=== PATIENT | male | born 1960 | race Two or more races ===

== ENCOUNTER 2024-07-18 15:13 | Inpatient (IN) | payer OTHER ==
[~2024-07-18] VITALS: Ht 182.9 cm; Wt 77.1 kg
[2024-07-18] MEDS ORDERED: TAMS0.4C PO (15:25)
[2024-07-18] MEDS ORDERED: LOSARTAN POTASS25 MG PO (15:25)
[2024-07-18] MEDS ORDERED: CEFTRIAXONE SODIUM 1,000 MG VIAL IV ONE (17:30)
[2024-07-18] MEDS ORDERED: 0.9 % SODIUM CHLORIDE 1,000 ML IV SCH ×2 (17:30→20:00)
[2024-07-18] MEDS ORDERED: CEFTRIAXONE SODIUM 1,000 MG VIAL ONE (18:27)
[2024-07-18 18:46] LABS: HEMATOCRIT 36.2 % (39.0-48.0); HEMOGLOBIN 11.9 g/dL (13-16.00); MEAN CELL VOLUME 88.3 fL (80.0-100.00); MEAN CORPUSCULAR HEMOGLOBIN 29.1 pg (27.00-32.0); MEAN CORPUSCULAR HGB CONC 32.9 g/dl (32.0-36.0); PLATELET COUNT 450 K/uL (150-450); RED CELL DISTRIBUTION WIDTH 15.2 % (11.5-14.5)
[2024-07-18 18:51] LABS: PH,URINE 7.5 (5.0-8.0); URINE APPEARANCE Cloudy; URINE BILIRRUBIN Negative (NEGATIVE); URINE BLOOD NHT; URINE COLOR Yellow; URINE GLUCOSE Negative (NEGATIVE); URINE KETONE Negative (NEGATIVE); URINE LEUKOCYTE Large; URINE NITRATE Positive; URINE PROTEIN Negative (NEGATIVE)
[2024-07-18 18:55] LABS: URINE CAST 2.35 uL (0.0-1.40); URINE EPITHELIAL CELLS 5.2 uL (0.0-38.8); URINE RBC 10.4 uL (0.0-20.8); URINE WBC 482.2 uL (0.0-23.2)
[2024-07-18 19:12] LABS: ALBUMIN 2.5 gm/dL (3.4-5.0); BILIRUBIN TOTAL 0.4 mg/dL (0.3-1.2); CALCIUM 8.2 mg/dL (8.5-10.1); CREATININE SERUM 0.35 mg/dL (0.70-1.30); GFR 251.08; GLOBULINA 3.3 G/DL (2.4-3.5); POTASSIUM 4.5 mEq/L (3.5-5.1); TOTAL PROTEIN 5.8 gm/dL (6.4-8.2)
[2024-07-18 19:14] LABS: URINE BACTERIA > 9821.5 uL (0.0-1933)
[2024-07-18] MEDS ORDERED: MEROPENEM 500 MG/VIAL VIAL IV SCH (20:06)
[2024-07-18] MEDS ORDERED: FAMOTIDINE/PF 20 MG in 0.9 % SODIUM CHLORIDE 8 ML IV PUSH SCH (20:07)
[2024-07-18] MEDS ORDERED: ACETAMINOPHEN 500 MG GEL..CAP PO PRN (20:15)
[2024-07-18 23:00] VITALS: BP 137/73; O2SAT 98
[2024-07-19 01:15] LABS: INR 0.97; PARTIAL THROMBOPLASTIN TIME 28.4 SECONDS (22.0-34.0); PROTHROMBIN TIME 10.6 SECONDS (9.0-11.5)
[2024-07-19] MEDS ORDERED: ENOXAPARIN SODIUM 40 MG/0.4 ML SYRINGE SUBCUTANEO SCH (09:00)
[2024-07-19] MEDS ORDERED: TAMSULOSIN HCL 0.4 MG CAP PO SCH (09:00)
[2024-07-19] MEDS ORDERED: LOSARTAN POTASSIUM 25 MG TABLET PO SCH (09:00)
[2024-07-19 09:23] VITALS: BP 138/87; O2SAT 98
[2024-07-19 16:07] VITALS: BP 125/78; O2SAT 91
[2024-07-20 01:59] VITALS: BP 155/92
[2024-07-20 09:24] VITALS: BP 162/85
[2024-07-20 15:49] LABS: PH,URINE 7.5 (5.0-8.0); URINE APPEARANCE Clear; URINE BILIRRUBIN Negative (NEGATIVE); URINE BLOOD Negative; URINE COLOR Yellow; URINE GLUCOSE Negative (NEGATIVE); URINE KETONE Negative (NEGATIVE); URINE LEUKOCYTE Large; URINE NITRATE Positive; URINE PROTEIN Negative (NEGATIVE)
[2024-07-20 15:52] LABS: URINE BACTERIA 1572.5 uL (0.0-1933); URINE EPITHELIAL CELLS 7.4 uL (0.0-38.8); URINE RBC 4.8 uL (0.0-20.8); URINE WBC 202.9 uL (0.0-23.2)
[2024-07-20 16:01] LABS: URINE CAST 1.03 uL (0.0-1.40)
[2024-07-20 17:40] VITALS: BP 147/86; O2SAT 98
[2024-07-21 02:54] VITALS: BP 164/90
[2024-07-21] MEDS ORDERED: LOSARTAN POTASSIUM 50 MG TABLET PO SCH (09:00)
[2024-07-21 09:43] VITALS: BP 127/77
[2024-07-21 18:25] VITALS: BP 119/74
[2024-07-22 01:19] VITALS: BP 140/80; O2SAT 97
[2024-07-22 08:55] VITALS: BP 123/82
== END 2024-07-22 13:10 | disposition home or self-care (01) | DRG 690 ==
LOC: ER 15:13 → MEDI 21:47 → MEDJ 07-19 16:12
PROVIDERS: General Practice; ADMIT Internal Medicine; ATTEND Internal Medicine
PROC: 0JB73ZZ Excision of Back Subcutaneous Tissue and Fascia, Percutaneous Approach (ICD-10-PCS; 2024-07-19)
PROC: 02HV33Z Insertion of Infusion Device into Superior Vena Cava, Percutaneous Approach (ICD-10-PCS; principal; 2024-07-21)
DX: N39.0 Urinary tract infection, site not specified (principal); B96.29 Other Escherichia coli [E. coli] as the cause of diseases classified elsewhere; B96.5 Pseudomonas (aeruginosa) (mallei) (pseudomallei) as the cause of diseases classified elsewhere; N48.89 Other specified disorders of penis; Q54.8 Other hypospadias; L89.152 Pressure ulcer of sacral region, stage 2; G30.9 Alzheimer's disease, unspecified; F02.80 Dementia in other diseases classified elsewhere, unspecified severity, without behavioral disturbance, psychotic disturbance, mood disturbance, and anxiety; Z85.51 Personal history of malignant neoplasm of bladder